=== PATIENT | male | born 1945 | race Hispanic/Latino ===

== ENCOUNTER 2017-03-09 13:29 | Emergency (ER) | payer MEDICARE | END 2017-03-09 14:05 | disposition home or self-care (01) | LOC: NAV ERS 13:29 | DX: S01.80XD Unspecified open wound of other part of head, subsequent encounter (principal); E78.00 Pure hypercholesterolemia, unspecified; Z79.899 Other long term (current) drug therapy; X58.XXXD Exposure to other specified factors, subsequent encounter ==